=== PATIENT | male | born 1970 | race Caucasian/White ===

== ENCOUNTER 2019-12-10 13:59 | Inpatient (IN) ==
[2019-12-10] MEDS ORDERED: dilTIAZem HCl 5 MG/ML 5 ML VIAL IV ONE (14:19)
[2019-12-10] MEDS ORDERED: dilTIAZem HCl 5 MG/ML 5 ML VIAL IV STA (14:21)
[2019-12-10] MEDS ORDERED: STAT IV Infusion **Titration per Protocol STA (14:27)
[2019-12-10] MEDS ORDERED: SODIUM CHLORIDE 0.9% 1000ML 1,000 ML IV SCH (14:30)
[2019-12-10] MEDS: dilTIAZem HCL 125 MG in DEXTROSE 5% 100 ML IV SCH (14:41)
[2019-12-10 14:42] LABS: Basophils # (auto) 0.02 K/uL (0-0.2); Basophils % (auto) 0.3 %; Eosinophils # (auto) 0.13 K/uL (0-0.5); Hematocrit (blood only) 48.6 % (42-52); Hemoglobin 17.7 g/dL (14.0-18.0); Immature Granulocytes # (auto) 0.01 K/uL (0.00-0.02); Immature Granulocytes % (auto) 0.2 %; Lymphocytes # (auto) 1.35 K/uL (1.2-3.4); Lymphocytes % (auto) 20.6 %; Mean Corpuscular Hemoglobin 32.6 pg (25-34); Mean Corpuscular Hgb Conc 36.4 g/dL (32-36); Mean Corpuscular Volume 89.5 fL (80-100); Mean Platelet Volume 10.1 fL (7.4-10.4); Monocytes % (auto) 7.6 %; Neutrophils # (auto) 4.55 K/uL (1.4-6.5); Neutrophils % (auto) 69.3 %; Platelet Count 206 K/uL (130-400); RDW Standard Deviation 42.9 fL (36.4-46.3); Red Blood Count 5.43 M/uL (4.7-6.1); White Blood Count 6.56 K/uL (4.8-10.8)
[2019-12-10 14:52] LABS: INR 1.1 (0.9-1.1); Partial Thromboplastin Time 28.6 Seconds (21.0-31.0); Prothrombin Time 11.3 Seconds (9.0-12.0)
[2019-12-10 15:03] LABS: Alanine Aminotransferase 61 U/L (12-78); Albumin Level 4.8 gm/dl (3.4-5.0); Aspartate Aminotransferase 39 U/L (15-37); Bilirubin Direct 0.2 mg/dl (0-0.2); Blood Urea Nitrogen 16 mg/dl (7-18); Calcium 9.8 mg/dl (8.5-10.1); Carbon Dioxide 27 mmol/L (21-32); Chloride 106 mmol/L (98-107); Creatinine Clr Calc Pharmacy 67.6 ml/min; Est GFR (African American) 65.8; Est GFR (Non-African American) 56.8; Glucose 131 mg/dl (70-99); Lipase 99 U/L (73-393); Magnesium 2.2 mg/dl (1.8-2.4); Potassium 3.9 mmol/L (3.5-5.1); Sodium 141 mmol/L (136-145)
[2019-12-10 15:09] LABS: Alkaline Phosphatase 81 U/L (45-117); Bilirubin,Total 0.9 mg/dl (0.2-1); Total Protein 8.3 gm/dl (6.4-8.2); Troponin I < 0.015 ng/ml (0-0.045)
--- NOTE | 2019-12-10 15:48 | XRay Report ---
XR abdomen 2V w PA chest HISTORY: 49 years-old Male vomitting acute vomiting COMPARISON: Chest radiograph 06/09/2019, CT abdomen and pelvis 11/24/2018. TECHNIQUE: PA view the chest with erect and supine views of the abdomen FINDINGS: Cardiomediastinal and hilar silhouettes are within normal limits. No pneumothorax, pleural effusion, airspace consolidation or overt pulmonary edema. Healed remote right mid clavicular fracture. Bones a ppear grossly intact. The renal shadows are partially obscured by bowel gas. Bilateral nephrolithiasis measures up to appr oximately 3 mm on the right and 4 mm on the left. No ureteral calculi identified. Pelvic basin calcif ications favor phleboliths. Mild fecal retention. Nonobstructive bowel gas pattern. There are a few m ildly dilated loops of small bowel within the central abdomen. No pneumatosis or pneumoperitoneum. No acute fracture. IMPRESSION: 1. No acute processes of the chest. 2. Nonobstructive bowel gas pattern. 3. Mildly dilated air-filled loops of small bowel within the central abdomen may reflect a mild enter itis or ileus. 4. Bilateral nephrolithiasis without ureteral calculi identified. ACT 112: Negative or not required by law. The above report was generated using voice recognition software. It may contain grammatical, syntax o r spelling errors. Electronically signed by: Bull Dobson M.D. 12/10/2019 3:47 PM
--- NOTE | 2019-12-10 15:55 | History & Physical Report ---
Date of Service December 10, 2019 Assessment & Plan (1) Atrial fibrillation: 49-year-old male with a past medical history hemochromatosis, hypertension, A. fib, is being admitted for rate control of A. fib with RVR. -Admit to PCU Received 1 L fluid bolus in ED Started on diltiazem drip-we will continue and wean off as able to or if he spontaneously converts Takes metoprolol 25 mg a.m. 12.5 mg p.m. at home for rate control. Increased to 25 mg of metoprolol tartrate twice daily. Continued aspirin daily for now although this is not effective at preventing stroke and atrial fibrillation PCU monitoring Cardiology consult for recurrent/paroxysmal? Atrial fibrillation without antic oagulation. [id number] score is 1 which puts him at low-moderate risk for stroke and should consider anticoagulation Patient says that he usually flips out of A. fib within 6 hours. He notes he probably started the A. fib episode at noon on 12/09. If the patient is still in A. fib at midnight on 12/09 consider starting either therapeutic Lovenox or heparin drip for anticoagulation going forward. Patient of Dr. Dumont Present on Admission?: Yes (2) Nausea & vomiting: Had multiple episodes of nausea and vomiting earlier on the day of admission-now resolved and feeling hungry Abdominal series x-ray shows possible mild enteritis or ileus, no obstruction No tenderness on examination He does not think he passed a kidney stone as he had no abdominal pain or flank pain Unclear what the etiology is -Start clear liquids diet and advance as tolerated (3) Kidney stones: Bilateral kidney stones noted on KUB. Patient has no pain at this time. He does not think that his kidney stones caused him to have nausea and vomiting today UA ordered along with urine strainer. Continue fluid management. Present on Admission?: Yes (4) Hemochromatosis: Patient follows with [facility] hematology outpatient. He receives periodic phlebotomy for control Hg 17.7, hematocrit 48.6 A.m. ferritin ordered (patient gets phlebotomy for ferritin greater than 80) (5) Hypertension: Appropriately controlled at this time Continued home metoprolol for rate control and blood pressure control Present on Admission?: Yes (6) Chronic kidney disease, stage 3, mod decreased GFR: CKD stage II-III Creatinine of 1.42 on admission is up slightly from previous Multiple other hospital creatinine measurements have been elevated with GFR less than 60. Appears to be chronic process possibly secondary to hemochromatosis or hypertension. -Renally dose medications when needed -Avoid nephrotoxins such as NSAIDs (7) Acute kidney insufficiency: Possibly secondary to dehydration with large volume emesis and location of kidney stones Received 1 L normal saline fluid bolus in the ER now placed on maintenance fluids. A.m. BMP to follow (8) DVT prophylaxis: DVT prophylaxis: 40 mg Lovenox daily, but consider starting therapeutic anticoagulation if atrial fibrillation persists into the morning FEN/GI: Maintenance normal saline/clear fluids advance diet as tolerated CODE STATUS full code Dispo: PCU History of Present Illness 49-year-old male with a past medical history of hemochromatosis, hypertension, nephrolithiasis, periodic A. fib who presents to the emergency department today with new onset emesis and a repeat episode of A. fib. He states that he woke up this morning feeling well except he had significant nasal congestion and some pressure in the sinuses with postnasal drip and by noon had become increasingly uneasy and nauseated. He states he did not have anything different for breakfast and had his normal lunch but because he was feeling so ill opted to go home around noon. He said by 1 PM he very suddenly became extremely nauseous and needed to vomit and then proceeded to do so. He states at that same time he noticed his pulse was erratic and very fast and noted that he was likely in A. fib. Patient notes that his prior episodes of A. fib have only ever been concurrent with episodes of emesis and nephrolithiasis. He denies any new or different meals consumed the previous day, though he notes that last night's dinner was chicken that was premade from [employer]. His denies any symptoms. He follows regularly with [facility] cardiology, nephrology, hematology. He takes metoprolol 25 mg in the morning and 12.5 mg in the evening to control his blood pressure and keep him out of A. fib. He states he is not on a an ticoagulant because he is normally not in A. fib. At this time he says he does not have any nausea or abdominal pain. He states he does not have "palpitations" but is very aware of his heart beating fast. He denies any chest pain, shortness of breath, dizziness, lightheadedness. He is being admitted for rate control of A. fib RVR. Chief Complaint: Rapid heartbeat Primary Care Provider: Joe Qureshi Allergies Allergy/AdvReac Type Severity Reaction Status Date / Time No Known Allergies Allergy Verified 12/10/19 15:00 Home Medications Home Medications Medication Instructions Recorded Confirmed Type metoprolol tartrate 25 mg tablet 12.5 mg PO HS tab 11/03/18 12/10/19 History metoprolol tartrate 25 mg tablet 25 mg PO QAM #180 tab 11/03/18 12/10/19 History aspirin 81 mg PO HS 11/24/18 12/10/19 History cholecalciferol (vitamin D3) 1,000 unit PO DAILY 06/09/19 12/10/19 History [Vitamin D3] fluticasone propionate [Flonase 2 spray INTRANASAL BID 06/09/19 12/10/19 History Allergy Relief] multivitamin 1 tab PO DAILY 06/09/19 12/10/19 History Past Med/Surg History Medical History (Updated 12/10/19 @ 21:12 by Zoya Maciel MD) Atrial fibrillation Chronic kidney disease, stage 3, mod decreased GFR Hemochromatosis Hypertension Kidney stones Mild hyperparathyroidism Vitamin D deficiency Surgical History (Updated 12/10/19 @ 17:11 by Lora Tapia MD) H/O lithotripsy Family History (Updated 12/10/19 @ 17:11 by Lora Tapia MD) Mother Atrial fibrillation Social History Smoking Status: Never smoker Hx Alcohol Use: No Hx Substance Use: No Preferred Language: Vietnamese Communication Ability: Effective 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 Review of Systems Constitutional: no fever, no chills and no body aches Respiratory: no cough and no dyspnea Cardiovascular: no chest pain, no dyspnea, no palpitations, no lighthead edness, no syncope and no edema Gastrointestinal: + vomiting; no abdominal pain, no nausea, no cramping, no constipation and no diarrhea/loose stools Genitourinary: no dysuria and no flank pain Physical Exam Physical Exam: Constitutional: well developed, well appearing male in no apparent distress, sitting comfortably in bed. Eyes: EOMI, pupils equal and reactive bilaterally, no scleral icterus Cardiac: tachycardic in AFIB, no murmurs, gallops or rubs. Normal S1, S2 Pulm: CTA BL, no wheezes, rhonchi, crackles or rubs, moving air well throughout both lungs Abd: soft, nontender, nondistended, normal bowel sounds, no rebound or guarding Extremities: 2+ peripheral pulses, no edema Neuro: no focal deficits, moving all 4 limbs, A&Ox3 Results & Data Results & Data ([facility]) Vital Signs (Past 12 Hours) Vital Signs Temp Pulse Resp BP Pulse Ox 12/10/19 14:30 111 H 13 113/74 100 12/10/19 14:26 131 H 15 132/87 99 12/10/19 14:23 141 H 20 100 12/10/19 14:21 140 H 16 138/86 100 12/10/19 14:01 36.7 C 99 H 20 178/141 H 100 Laboratory Results WBC 6.56 K/uL (4.8-10.8) 12/10/19 14:22 RBC 5.43 M/uL (4.7-6.1) 12/10/19 14:22 Hgb 17.7 g/dL (14.0-18.0) 12/10/19 14:22 Hct 48.6 % (42-52) 12/10/19 14:22 MCV 89.5 fL (80-100) 12/10/19 14:22 MCH 32.6 pg (25-34) 12/10/19 14:22 MCHC 36.4 g/dL (32-36) H 12/10/19 14:22 RDW Std Deviation 42.9 fL (36.4-46.3) 12/10/19 14:22 RDW Coeff of Ambrocio 13.0 % (11.5-14.5) 12/10/19 14:22 Plt Count 206 K/uL (130-400) 12/10/19 14:22 MPV 10.1 fL (7.4-10.4) 12/10/19 14:22 Immature Gran % (Auto) 0.2 % 12/10/19 14:22 Neut % (Auto) 69.3 % 12/10/19 14:22 Lymph % (Auto) 20.6 % 12/10/19 14:22 [place] % (Auto) 7.6 % 12/10/19 14:22 Eos % (Auto) 2.0 % 12/10/19 14:22 Baso % (Auto) 0.3 % 12/10/19 14:22 Neut # (Auto) 4.55 K/uL (1.4-6.5) 12/10/19 14:22 Lymph # (Auto) 1.35 K/uL (1.2-3.4) 12/10/19 14:22 [place] # (Auto) 0.50 K/uL (0.11-0.59) 12/10/19 14:22 Eos # (Auto) 0.13 K/uL (0-0.5) 12/10/19 14:22 Baso # (Auto) 0.02 K/uL (0-0.2) 12/10/19 14:22 Immature Gran # (Auto) 0.01 K/uL (0.00-0.02) 12/10/19 14:22 PT 11.3 Seconds (9.0-12.0) 12/10/19 14:22 INR 1.1 (0.9-1.1) 12/10/19 14:22 APTT 28.6 Seconds (21.0-31.0) 12/10/19 14:22 PTT Ratio 1.0 12/10/19 14:22 Sodium 141 mmol/L (136-145) 12/10/19 14:22 Potassium 3.9 mmol/L (3.5-5.1) 12/10/19 14:22 Chloride 106 mmol/L (98-107) 12/10/19 14:22 Carbon Dioxide 27 mmol/L (21-32) 12/10/19 14:22 Anion Gap 8.0 (3-11) 12/10/19 14:22 BUN 16 mg/dl (7-18) 12/10/19 14:22 Creatinine 1.42 mg/dl (0.6-1.4) H 12/10/19 14:22 Est Cr Clr Drug Dosing 67.6 ml/min 12/10/19 14:22 Est GFR ( Amer) 65.8 12/10/19 14:22 Est GFR (Non-Af Amer) 56.8 12/10/19 14:22 BUN/Creatinine Ratio 11.0 (10-20) 12/10/19 14:22 Glucose 131 mg/dl (70-99) H 12/10/19 14:22 Calcium 9.8 mg/dl (8.5-10.1) 12/10/19 14:22 Magnesium 2.2 mg/dl (1.8-2.4) 12/10/19 14:22 Total Bilirubin 0.9 mg/dl (0.2-1) 12/10/19 14:22 Direct Bilirubin 0.2 mg/dl (0-0.2) 12/10/19 14:22 AST 39 U/L (15-37) H 12/10/19 14:22 ALT 61 U/L (12-78) 12/10/19 14:22 Alkaline Phosphatase 81 U/L (45-117) 12/10/19 14:22 Troponin I < 0.015 ng/ml (0-0.045) 12/10/19 14:22 Total Protein 8.3 gm/dl (6.4-8.2) H 12/10/19 14:22 Albumin 4.8 gm/dl (3.4-5.0) 12/10/19 14:22 Lipase 99 U/L (73-393) 12/10/19 14:22 EKG: Atrial fibrillation with RVR KUB: moderate stool, BL nephrolithiasis noted by radiologist arrows, no free air, nonobstructive bowel gas pattern, mildly dilated air-filled loops of small bowel in the central abdomen may reflect mild enteritis or ileus CXR: mild edema/vascular congestion obscuring right heart border, no cardiomegaly, diaphragmatic borders easily identifiable, no focal areas of consolidation in lungs, Supervising Physician Co-Signing Physician Notes I personally examined the patient and verified all gutierrez points of history and exam, discussed case, and agree with decision making with Dr. Tapia with the following additions/exceptions: This patient is a 49-year-old male with a history of PAF not on anticoagulation, HTN, hemochromatosis, and nephrolithiasis, who presents with multiple episodes of nausea and vomiting today followed by noticing rapid heart rate and found to be in rapid atrial fibrillation. He also reports significant nasal congestion and frontal headache with postnasal drip this morning. He does have a history of allergies and was recently tested for allergies including molds 1 month ago. 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 He does think that he had COVID back in May 2019 when he had significant shortness of breath and chest pains and loss of hearing afterwards for several week period. He denies any chest pain or shortness of breath today, his nausea is now improving. He remains in rapid atrial fibrillation when I saw him. He denies abdominal pain or flank pain. No blood in the urine. He had a normal bowel movement this morning. History and ROS reviewed as above Vitals reviewed Gen: AAOx3, NAD HEENT: Anicteric sclerae, EOMI, oropharynx clear, mucous membranes moist, TMs normal bilaterally, EACs normal bilaterally without impaction, no rhinorrhea, PERRL CV: Irregularly irregular, mildly tachycardic no mgr nl S1S2 Pulm: CTAB no wcr Abd: +BS soft NT ND no masses or hernias Ext: No edema, 2+ DP pulses Skin: No rashes, warm/dry Neuro: Full strength throughout Laboratory values reviewed, COVID-19 is negative ECG reviewed with rapid atrial fibrillation Chest x-ray and abdomen x-ray reviewed 49-year-old male with history as above, here with nausea/vomiting and rapid atrial fibrillation -Admit to PCU for telemetry monitoring -Continue rate control and hoping he will spontaneously convert to sinus rhythm as he usually does -As noted above, his risk for stroke is low to moderate and anticoagulation should be considered. Would opt to give therapeutic Lovenox dosing if atrial fibrillation persists through the night tonight -Increasing metoprolol tartrate to 25 mg p.o. twice daily for rate control Consult cardiology For nausea vomiting-unclear etiology but is now resolved, COVID-19 is negative. He typically gets rapid atrial fibrillation with nausea and vomiting, but could the rapid atrial fibrillation because the nausea and vomiting? He also reports that he usually gets nausea and vomiting with kidney stones but does not feel like he passed a kidney stone. Check UA and strain urine for stone. There are stones in the kidneys on abdominal x-ray. -Continue IV fluids Check electrolytes in the morning and keep potassium greater than 4 magnesium greater than 2 Give 10 mEq potassium chloride x1 now Resident Activity Tracking Resident Involvement: Resident Care Provided Care Provided: Adult Hospital Medicine (1) Atrial fibrillation Atrial fibrillation type: unspecified Qualified Code(s): I48.91 - Unspecified atrial fibrillation
--- NOTE | 2019-12-10 16:50 | Emergency Department Note ---
History of Present Illness General Chief Complaint: Cardiac Assessment Stated Complaint: AFIB, VOMITING Time Seen by Provider: 12/10/19 14:09 History of Present Illness Provider Complaint: + rapid heart beat, + irregular heart beat and + atrial fibrillation Onset (ago): 1 day(s) Current Pain Intensity: 0 Arrhythmia history: + atrial fibrillation Associated symptoms: + vomiting HPI narrative: 49-year-old male with history of A. fib presents emergency department for palpitations. Patient states "I think I am in A. fib". Patient states he goes into atrial fibrillation sometimes when he was vomits. Patient states he vomited today after he thought he ate something that did not sit well and stomach. He states he had a sinus headache which resolved after he vomited also. He currently denies any chest pain difficulty breathing or headache. Home Medications Home Medications Medication Instructions Recorded Confirmed Type metoprolol tartrate 25 mg tablet 12.5 mg PO HS tab 11/03/18 12/10/19 History metoprolol tartrate 25 mg tablet 25 mg PO QAM #180 tab 11/03/18 12/10/19 History aspirin 81 mg PO HS 11/24/18 12/10/19 History cholecalciferol (vitamin D3) 1,000 unit PO DAILY 06/09/19 12/10/19 History [Vitamin D3] fluticasone propionate [Flonase 2 spray INTRANASAL BID 06/09/19 12/10/19 History Allergy Relief] multivitamin 1 tab PO DAILY 06/09/19 12/10/19 History Allergies Allergy/AdvReac Type Severity Reaction Status Date / Time No Known Allergies Allergy Verified 12/10/19 15:00 Past Med/Surg History Medical History (Updated 12/10/19 @ 16:59 by Sandor Gonzalez) Atrial fibrillation Hemochromatosis Hypertension Kidney stones Surgical History No pertinent past surgical history Social History Smoking Status: Never smoker Preferred Language: Estonian Feels Safe at Home: Yes Review of Systems A total of 10 systems reviewed and were otherwise negative Physical Exam Vital Signs: Vital Signs - 24 hr 12/10/19 14:01 12/10/19 14:21 12/10/19 14:23 Temperature 36.7 C Temperature Source Oral Pulse Rate 99 H 140 H 141 H Pulse Rate from Sp O2 Sensor 110 H Pulse Rhythm Regular Irregular Pulse Strength Normal Respiratory Rate 20 16 20 Respiratory Effort / Characteristics Non-Labored Sponta neous Respiratory Depth Normal Respiratory Patter n Regular Blood Pressure 178/141 H 138/86 Blood Pressure Angie n 153 112 Blood Pressure Pos ition Sitting Pulse Oximetry 100 100 100 Oxygen Delivery Me thod Room Air Room Air Sepsis Recent Feve r Within 48 Hours No Sepsis New/Unexpla ined Change in Men milagros Status No Sepsis Action Take n by Nursing No Action Required 12/10/19 14:26 12/10/19 14:30 12/10/19 14:35 Temperature Temperature Source Pulse Rate 131 H 111 H 117 H Pulse Rate from Sp O2 Sensor 128 H 112 H 101 H Pulse Rhythm Pulse Strength Respiratory Rate 15 13 7 L Respiratory Effort / Characteristics Respiratory Depth Respiratory Patter n Blood Pressure 132/87 113/74 126/81 Blood Pressure Angie n 104 77 90 Blood Pressure Pos ition Pulse Oximetry 99 100 100 Oxygen Delivery Me thod Sepsis Recent Feve r Within 48 Hours Sepsis New/Unexpla ined Change in Men milagros Status Sepsis Action Take n by Nursing 12/10/19 14:40 12/10/19 14:45 12/10/19 14:50 Temperature Temperature Source Pulse Rate 105 H 92 H 96 H Pulse Rate from Sp O2 Sensor 97 H 105 H 110 H Pulse Rhythm Pulse Strength Respiratory Rate 12 10 L 11 L Respiratory Effort / Characteristics Respiratory Depth Respiratory Patter n Blood Pressure 122/78 132/71 119/78 Blood Pressure Angie n 94 83 84 Blood Pressure Pos ition Pulse Oximetry 100 100 99 Oxygen Delivery Me thod Sepsis Recent Feve r Within 48 Hours Sepsis New/Unexpla ined Change in Men milgaros Status Sepsis Action Take n by Nursing 12/10/19 14:55 12/10/19 15:00 12/10/19 15:25 Temperature Temperature Source Pulse Rate 106 H 95 H 107 H Pulse Rate from Sp O2 Sensor 108 H 114 H 101 H Pulse Rhythm Pulse Strength Respiratory Rate 14 6 L 6 L Respiratory Effort / Characteristics Respiratory Depth Respiratory Patter n Blood Pressure 107/78 135/64 105/74 Blood Pressure Angie n 82 81 81 Blood Pressure Pos ition Pulse Oximetry 100 96 97 Oxygen Delivery Me thod Sepsis Recent Feve r Within 48 Hours Sepsis New/Unexpla ined Change in Men milagros Status Sepsis Action Take n by Nursing 12/10/19 16:28 12/10/19 16:30 12/10/19 16:35 Temperature Temperature Source Pulse Rate 143 H 113 H 114 H Pulse Rate from Sp O2 Sensor 123 H 110 H 104 H Pulse Rhythm Pulse Strength Respiratory Rate 14 7 L 5 L Respiratory Effort / Characteristics Respiratory Depth Respiratory Patter n Blood Pressure 121/96 122/85 126/79 Blood Pressure Angie n 100 93 102 Blood Pressure Pos ition Pulse Oximetry 97 97 96 Oxygen Delivery Me thod Sepsis Recent Feve r Within 48 Hours Sepsis New/Unexpla ined Change in Men mliagros Status Sepsis Action Take n by Nursing Physical Exam: Physical Exam GENERAL: He is oriented to person, place, and time. He appears well-developed and well-nourished. He does not appear distressed. HENT: Exam performed. - Head: Normocephalic and atraumatic. - Right Ear: External ear normal. No mastoid tenderness. - Left Ear: External ear normal. No mastoid tenderness. - Mouth/Throat: The oropharynx is clear and moist. No trismus in the jaw. No dental abscesses or uvula swelling. No oropharyngeal exudate or tonsillar abscesses. EYES: Conjunctivae and EOM are normal. Pupils are equal, round, and reactive to light. Right eye exhibits no discharge. Left eye exhibits no discharge. No sc leral icterus. NECK: Normal range of motion. Neck supple. No JVD present. No spinous process tenderness present. No carotid bruit present. No rigidity. No tracheal deviation and normal range of motion present. No Brudzinski's sign and no Kernig's sign noted. CV: Tachycardic rate, irregular rhythm, normal heart sounds and intact distal pulses. There is no peripheral edema. Palpable radial pulses bue. PULM/CHEST: Effort normal and breath sounds normal. No respiratory distress. No stridor. He has no wheezes. He has no rales. - Chest Wall: He exhibits no tenderness. ABD: The abdomen is soft. Bowel sounds are normal. He has no distension. No mass is present. There is no tenderness. There is no rebound, no guarding, no Matias's sign and no tenderness at McBurney's point. Rovsig negative. MUSC/SKEL: Normal range of motion. There is no peripheral edema, tenderness or deformity. LYMPH: No cervical adenopathy. NEURO: He is alert and oriented to person, place, and time. He has normal streng th. No cranial nerve deficit or sensory deficit. Coordination and gait normal. GCS eye subscore is 4. GCS verbal subscore is 5. GCS motor subscore is 6. Cerebellar tests wnl. SKIN: Skin is warm and dry. He is not diaphoretic. PSYCH: He has a normal mood and affect. Behavior is normal. Judgment and thought content normal. Course Course 1409: The patient was evaluated in room C10. A complete history and physical exam was performed. 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 Large-bore IV access was immediately abscess and the patient was given Cardizem 20 mg IV push. Cardizem improved the patient's heart rate patient remained in atrial fibrillation. Patient was started on Cardizem drip. Cardiac monitoring: An order was placed for continuous cardiac monitoring. The monitor shows a rate of 150 with atrial fibrillation rhythm 1547: Vital signs stable patient's heart rate is stable on Cardizem drip. Labs and imaging within normal limits. Patient will be admitted to the hospital service. Discussed with [facility] hospitalist Dr. Maciel Administered Medications Diltiazem HCl 125 mg/ Dextrose 125 mls @ 5 mls/hr IV .Q24H [facility]; Protocol Stop: 01/09/20 14:29 Last Admin: 12/10/19 14:41 Dose: 5 mg/hr, 5 mls/hr Documented by: [id number] Cosigned by: [id number] Discontinued Medications Diltiazem HCl (Diltiazem Hcl 5 Mg/Ml 5 Ml Vial) Confirm Administered Dose 25 mg IV .STK-MED ONE Stop: 12/10/19 14:20 Last Admin: 12/10/19 14:37 Dose: Not Given Documented by: [id number] Diltiazem HCl (Diltiazem Hcl 5 Mg/Ml 5 Ml Vial) 20 mg IV NOW STA Stop: 12/10/19 14:22 Last Admin: 12/10/19 14:30 Dose: 20 mg Documented by: [id number] Cosigned by: [id number] Sodium Chloride (Nss 1000ml) 1,000 mls @ 999 mls/hr IV .Q1H1M [facility] Stop: 12/10/19 15:30 Last Infusion: 09/25/20 15:32 Dose: 0 mls/hr Documented by: [id number] Admin: 12/10/19 14:30 Dose: 999 mls/hr Documented by: [id number] Medical Decision Making Laboratory Data Result diagrams: 12/10/19 14:22 12/10/19 14:22 Lab Results 12/10/19 12/10/19 12/10/19 Range/Units 14:22 14:22 14:22 WBC 6.56 (4.8-10.8) K/uL RBC 5.43 (4.7-6.1) M/uL Hgb 17.7 (14.0-18.0) g/dL Hct 48.6 (42-52) % MCV 89.5 (80-100) fL MCH 32.6 (25-34) pg MCHC 36.4 H (32-36) g/dL RDW Std Deviation 42.9 (36.4-46.3) fL RDW Coeff of Ambrocio 13.0 (11.5-14.5) % Plt Count 206 (130-400) K/uL MPV 10.1 (7.4-10.4) fL Immature Gran % (Auto) 0.2 % Neut % (Auto) 69.3 % Lymph % (Auto) 20.6 % Russell % (Auto) 7.6 % Eos % (Auto) 2.0 % Baso % (Auto) 0.3 % Neut # (Auto) 4.55 (1.4-6.5) K/uL Lymph # (Auto) 1.35 (1.2-3.4) K/uL Russell # (Auto) 0.50 (0.11-0.59) K/uL Eos # (Auto) 0.13 (0-0.5) K/uL Baso # (Auto) 0.02 (0-0.2) K/uL Immature Gran # (Auto) 0.01 (0.00-0.02) K/uL PT 11.3 (9.0-12.0) Seconds INR 1.1 (0.9-1.1) APTT 28.6 (21.0-31.0) Seconds PTT Ratio 1.0 Sodium 141 (136-145) mmol/L Potassium 3.9 (3.5-5.1) mmol/L Chloride 106 (98-107) mmol/L Carbon Dioxide 27 (21-32) mmol/L Anion Gap 8.0 (3-11) BUN 16 (7-18) mg/dl Creatinine 1.42 H (0.6-1.4) mg/dl Est Cr Clr Drug Dosing 67.6 ml/min Est GFR ( Amer) 65.8 Est GFR (Non-Af Amer) 56.8 BUN/Creatinine Ratio 11.0 (10-20) Glucose 131 H (70-99) mg/dl Calcium 9.8 (8.5-10.1) mg/dl Magnesium 2.2 (1.8-2.4) mg/dl Total Bilirubin 0.9 (0.2-1) mg/dl Direct Bilirubin 0.2 (0-0.2) mg/dl AST 39 H (15-37) U/L ALT 61 (12-78) U/L Alkaline Phosphatase 81 (45-117) U/L Troponin I < 0.015 (0-0.045) ng/ml Total Protein 8.3 H (6.4-8.2) gm/dl Albumin 4.8 (3.4-5.0) gm/dl Lipase 99 (73-393) U/L Imaging Data Radiologist's Impression: XR abdomen 2V w PA chest HISTORY: 49 years-old Male vomitting acute vomiting COMPARISON: Chest radiograph 06/09/2019, CT abdomen and pelvis 11/24/2018. TECHNIQUE: PA view the chest with erect and supine views of the abdomen FINDINGS: Cardiomediastinal and hilar silhouettes are within normal limits. No pneumothorax, pleural effusion, airspace consolidation or overt pulmonary edema. Healed remote right mid clavicular fracture. Bones appear grossly intact. The renal shadows are partially obscured by bowel gas. Bilateral nephrolithiasis measures up to approximately 3 mm on the right and 4 mm on the left. No ureteral calculi identified. Pelvic basin calcifications favor phleboliths. Mild fecal retention. Nonobstructive bowel gas pattern. There are a few mildly dilated loops of small bowel within the central abdomen. No pneumatosis or pneumoperitoneum. No acute fracture. IMPRESSION: 1. No acute processes of the chest. 2. Nonobstructive bowel gas pattern. 3. Mildly dilated air-filled loops of small bowel within the central abdomen may reflect a mild enteritis or ileus. 4. Bilateral nephrolithiasis without ureteral calculi identified. ACT 112: Negative or not required by law. The above report was generated using voice recognition software. It may contain grammatical, syntax or spelling errors. Electronically signed by: Bull Dobson M.D. 12/10/2019 3:47 PM Dictated: 12/10/19 1544 Transcribed: 12/10/19 154 ECG Data Additional Comments: EKG #1 at 1411: Atrial fibrillation with a rate of 135. QRS and QTc intervals within normal limits. No ST elevation or ST depression. EKG #2 at 1430: Atrial fibrillation with rate of 127. QRS and QTc intervals within normal limits. No ST elevation or ST depression. EKG #3 at 1431: Atrial fibrillation with a rate of 107. QRS and QTc intervals within normal limits. No ST elevation or ST depression. [facility] Narrative 1409: The patient was evaluated in room C10. A complete history and physical exam was performed. 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 Large-bore IV access was immediately abscess and the patient was given Cardizem 20 mg IV push. Cardizem improved the patient's heart rate patient remained in atrial fibrillation. Patient was started on Cardizem drip. Cardiac monitoring: An order was placed for continuous cardiac monitoring. The monitor shows a rate of 150 with atrial fibrillation rhythm 1547: Vital signs stable patient's heart rate is stable on Cardizem drip. Labs and imaging within normal limits. Patient will be admitted to the hospital service. Discussed with [facility] hospitalist Dr. Maciel Impression & Plan Atrial fibrillation Critical Care Time Critical Care Time: Yes Total Critical Care Time: 59 I have personally spent greater than 59 minutes of critical care time in the direct management of this patient. This includes bedside care, interpretation of diagnostic studies, and testing, discussion with consultants, patient, and family members, and other required patient management activities. This 59 minutes is in excess of all separately billable procedures. Discharge Plan Visit Data Chief Complaint: Cardiac Assessment Stated Complaint: AFIB, VOMITING ED Provider: Sandor Gonzalez Discharge Problem: Atrial fibrillation Patient Disposition: Admitted As Inpatient Forms Stand Alone Forms: [facility] Prescriptions Prescriptions: No Action metoprolol tartrate 25 mg tablet 25 mg PO QAM Qty: 180 RF: 0 metoprolol tartrate 25 mg tablet 12.5 mg PO HS RF: 0 aspirin 81 mg Tablet,Delayed Release (Dr/Ec) 81 mg PO HS RF: 0 multivitamin Tablet 1 tab PO DAILY RF: 0 fluticasone propionate [Flonase Allergy Relief] 50 mcg/actuation Anson,Suspension 2 spray INTRANASAL BID RF: 0 cholecalciferol (vitamin D3) [Vitamin D3] 25 mcg (1,000 unit) Capsule 1,000 unit PO DAILY RF: 0 Referrals Referrals: Joe Qureshi [Primary Care Provider] - Discharge Problem: Atrial fibrillation Qualifiers: Atrial fibrillation type: unspecified Qualified Code(s): I48.91 - Unspecified atrial fibrillation
[2019-12-10] MEDS ORDERED: ONDANSETRON INJ 2 MG/ML 2 ML VIAL IV PRN (20:31)
[2019-12-10] MEDS ORDERED: ACETAMINOPHEN 325 MG TAB PO PRN (20:31)
[2019-12-10] MEDS ORDERED: NITROGLYCERIN SL 0.4 MG/TAB TAB SL PRN (20:31)
[2019-12-10] MEDS ORDERED: POTASSIUM CHLORIDE 10 MEQ TABCR PO STA (20:31)
[2019-12-10] MEDS ORDERED: ASPIRIN 81 MG ECTAB PO SCH (21:00)
--- NOTE | 2019-12-10 21:21 | Billing Data ---
Date of Service December 10, 2019 Coding Level of Care Code 46655 Initial Inpt Care Lvl 3
[2019-12-10] MEDS: SODIUM CHLORIDE 0.9% 1000ML 1,000 ML IV SCH (22:22)
[2019-12-10] MEDS: ENOXAPARIN 100 MG/1ML SYR SQ SCH (22:26)
[2019-12-10] MEDS: METOPROLOL TARTRATE 25 MG TAB PO SCH (22:28)
[2019-12-10] MEDS: FLUTICASONE PROPIONATE NA SPR 16 GM BTL SCH (22:29)
[2019-12-10 23:18] LABS: Appearance Urine Clear (Clear); Bilirubin Urine Negative (Negative); Blood Urine Negative (Negative); Color Urine Yellow; Glucose Urine UA Negative (Negative); Ketones Urine Trace (Negative); Leukocyte Esterase Urine Negative (Negative); Nitrite Urine Negative (Negative); Protein Urine Negative (Negative); Specific Gravity Urine 1.011 (1.000-1.030); Urobilinogen Urine Negative (Negative); pH Urine 8.5 (4.5-7.5)
[2019-12-11 06:33] LABS: Basophils # (auto) 0.02 K/uL (0-0.2); Basophils % (auto) 0.3 %; Eosinophils # (auto) 0.24 K/uL (0-0.5); Eosinophils % (auto) 3.8 %; Hematocrit (blood only) 47.9 % (42-52); Hemoglobin 17.3 g/dL (14.0-18.0); Immature Granulocytes # (auto) 0.01 K/uL (0.00-0.02); Immature Granulocytes % (auto) 0.2 %; Lymphocytes # (auto) 1.56 K/uL (1.2-3.4); Lymphocytes % (auto) 24.8 %; Mean Corpuscular Hemoglobin 32.6 pg (25-34); Mean Corpuscular Hgb Conc 36.1 g/dL (32-36); Mean Corpuscular Volume 90.4 fL (80-100); Mean Platelet Volume 10.4 fL (7.4-10.4); Monocytes # (auto) 0.89 K/uL (0.11-0.59); Monocytes % (auto) 14.2 %; Neutrophils # (auto) 3.56 K/uL (1.4-6.5); Neutrophils % (auto) 56.7 %; Platelet Count 188 K/uL (130-400); RDW Coefficient of Variation 13.1 % (11.5-14.5); RDW Standard Deviation 43.2 fL (36.4-46.3); White Blood Count 6.28 K/uL (4.8-10.8)
[2019-12-11 07:07] LABS: BUN Creatinine Ratio 9.9 (10-20); Calcium 9.4 mg/dl (8.5-10.1); Creatinine Clr Calc Pharmacy 75.5 ml/min; Est GFR (African American) 75.3; Magnesium 2.3 mg/dl (1.8-2.4); Potassium 3.9 mmol/L (3.5-5.1)
[2019-12-11] MEDS: SODIUM CHLORIDE 0.9% 1000ML 1,000 ML IV SCH (07:54)
[2019-12-11] MEDS ORDERED: CHOLECALCIFEROL 1,000 UNITS 25 MCG TAB PO SCH (09:00)
[2019-12-11] MEDS ORDERED: ENOXAPARIN INJ 40 MG/0.4 ML SYR SQ SCH (09:00)
[2019-12-11] MEDS ORDERED: MULTIVITAMIN TAB PO SCH (09:00)
[2019-12-11] MEDS: METOPROLOL TARTRATE 25 MG TAB PO SCH (09:42)
[2019-12-11] MEDS: ENOXAPARIN 100 MG/1ML SYR SQ SCH (09:43)
[2019-12-11] MEDS: FLUTICASONE PROPIONATE NA SPR 16 GM BTL SCH (09:43)
--- NOTE | 2019-12-11 10:44 | Cardiology Consultation ---
Date of Consultation December 11, 2019 Assessment & Plan (1) Atrial fibrillation: He presents with recurrent atrial fibrillation, generally his episodes are short-lived, this is longer than usual at about 24 hours now. The rate was fast on presentation and the episode started with vomiting which has been his typical presentation. He is very confident that it started at that time as he checks his pulse regularly throughout the day and he is confident he was not in it before that episode of vomiting. He is not on anticoagulant but is here. He does take aspirin as an outpatient. He is on low-dose intravenous diltiazem and his heart rate is adequate. Although his [id number] score is only 1 (hypertension) he may be at increased risk due to his history of hemochromatosis although that obviously is not in the scoring system. Still since he seems acutely aware of his rhythm in general it may be acceptable for long-term to not have him on an anticoagulant. I would not use aspirin. For now however I would have him on an anticoagulant, at least until he converts to sinus rhythm which I suspect he will do on his own. With adequate rate control I think he could go home in atrial fibrillation. I would recommend discontinuing aspirin, starting Eliquis 5 mg twice a day, inc reasing his metoprolol tartrate to 50 mg 3 times a day at least temporarily while he is in atrial fibrillation and letting him go home. If he does not convert on his own cardioversion could be arranged through Dr. Moore's office next week. (2) Hemochromatosis: He has a history of hemochromatosis, but does have cardiac manifestations and perhaps could relate to his atrial fibrillation although that is by no means clear. I do not think there is any specific precautions to be taken however. (3) Hypertension: He has a history of hypertension but his blood pressure has been good here as well as on prior vital signs in the record. His current dose of metoprolol appears adequate to control his blood pressure. History of Present Illness Reason for Consultation: Atrial fibrillation with rapid ventricular response Attending Physician: Natalie Parmar DO History of Present Illness This is a 49-year-old male who has a history of hemochromatosis and hypertension as well as atrial fibrillation for which he follows with Dr. Dumont. He is on aspirin rather than an anticoagulant ([id number] score is 1 for hypertension). He presented after having a GI illness yesterday, associated with nausea and vomiting which will from time to time trigger his atrial fibrillation. He checks his pulse regularly because he also has PACs and does that several times a day, he checked it immediately after having the vomiting when he felt some palpitations and noted that it was irregular and came to the emergency room. He was admitted, given Lovenox as an anticoagulant and diltiazem intravenously for rate control. As an outpatient he is maintained on metoprolol tartrate 25 mg in the morning and 12-1/2 mg at bedtime. He also takes aspirin but not an anticoagulant. He is very confident that the atrial fibrillation with the vomiting started at that time and that has been his history. He feels well now, he has had no further GI complaints and although he is aware of the irregularity he is not bothered by it now with rate control. Allergies Allergy/AdvReac Type Severity Reaction Status Date / Time No Known Allergies Allergy Verified 12/10/19 15:00 Home Medications Home Medications Medication Instructions Recorded Confirmed Type metoprolol tartrate 25 mg tablet 12.5 mg PO HS tab 11/03/18 12/10/19 History metoprolol tartrate 25 mg tablet 25 mg PO QAM #180 tab 11/03/18 12/10/19 History aspirin 81 mg PO HS 11/24/18 12/10/19 History cholecalciferol (vitamin D3) 1,000 unit PO DAILY 06/09/19 12/10/19 History [Vitamin D3] fluticasone propionate [Flonase 2 spray INTRANASAL BID 06/09/19 12/10/19 History Allergy Relief] multivitamin 1 tab PO DAILY 06/09/19 12/10/19 History Patient History Medical History Atrial fibrillation Chronic kidney disease, stage 3, mod decreased GFR Hemochromatosis Hypertension Kidney stones Mild hyperparathyroidism Vitamin D deficiency Surgical History H/O lithotripsy Family History Mother Atrial fibrillation Social History Smoking Status: Never smoker Hx Alcohol Use: No Hx Substance Use: No Preferred Language: British Communication Ability: Effective 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 Review of Systems Review of Systems: All systems reviewed & are unremarkable except as noted in HPI & below Physical Exam Physical Exam: Constitutional: Alert, cooperative and in no distress. HEENT: Unremarkable Neck: No jugular venous distention, carotid pulses are irregular but otherwise normal and equal bilaterally without bruits. Pulmonary: Clear to auscultation bilaterally. Cardiac: Irregular rhythm with no murmur, gallop or rub. Abdomen: Soft, nontender with normal bowel sounds. Extremities: No edema. Distal pulses intact. Neurologic: No focal findings. Gait is steady. Skin: No rash, ecchymoses or petechiae. Results & Data ([facility]) Vital Signs (Past 12 Hours) Vital Signs Temp Pulse Resp BP BP Pulse Ox 12/11/19 09:39 94 H 113/75 12/11/19 08:15 37.3 C 93 H 18 127/85 96 12/11/19 03:59 36.9 C 80 16 117/79 96 12/10/19 23:54 36.7 C 85 18 112/75 69 L Laboratory Results Cardiac Enzymes 12/10/19 Range/Units 14:22 AST 39 H (15-37) U/L Troponin I < 0.015 (0-0.045) ng/ml Coagulation 12/10/19 Range/Units 14:22 PT 11.3 (9.0-12.0) Seconds APTT 28.6 (21.0-31.0) Seconds CBC 12/10/19 12/11/19 Range/Units 14:22 06:00 WBC 6.56 6.28 (4.8-10.8) K/uL RBC 5.43 5.30 (4.7-6.1) M/uL Hgb 17.7 17.3 (14.0-18.0) g/dL Hct 48.6 47.9 (42-52) % Plt Count 206 188 (130-400) K/uL Neut # (Auto) 4.55 3.56 (1.4-6.5) K/uL Lymph # (Auto) 1.35 1.56 (1.2-3.4) K/uL [place] # (Auto) 0.50 0.89 H (0.11-0.59) K/uL Eos # (Auto) 0.13 0.24 (0-0.5) K/uL Baso # (Auto) 0.02 0.02 (0-0.2) K/uL Comprehensive Metabolic Panel 12/10/19 12/11/19 Range/Units 14:22 06:00 Sodium 141 142 (136-145) mmol/L Potassium 3.9 3.9 (3.5-5.1) mmol/L Chloride 106 109 H (98-107) mmol/L Carbon Dioxide 27 27 (21-32) mmol/L BUN 16 13 (7-18) mg/dl Creatinine 1.42 H 1.27 (0.6-1.4) mg/dl Glucose 131 H 94 (70-99) mg/dl Calcium 9.8 9.4 (8.5-10.1) mg/dl Direct Bilirubin 0.2 (0-0.2) mg/dl AST 39 H (15-37) U/L ALT 61 (12-78) U/L Alkaline Phosphatase 81 (45-117) U/L Total Protein 8.3 H (6.4-8.2) gm/dl Albumin 4.8 (3.4-5.0) gm/dl Intake and Output 12/10/19 12/11/19 12/11/19 22:59 06:59 14:59 Intake Total 1000 / 1000 1360 / 1360 Output Total 900 / 900 850 / 850 Balance 1000 / 100 -900 / 100 510 / 510 Intake: IV 1000 / 1000 1000 / 1000 Nss 1000ML 1,000 ml @ 100 mls/ 1000 / 1000 1000 / 1000 hr IV .Q10H [facility] Rx#:[id number] Oral 360 / 360 Output: Urine 900 / 900 400 / 400 Other 450 / 450 Other: Weight 87.7 kg 87.7 kg Diagnostic Findings Telemetry: Atrial fibrillation with good heart rate control PG Care Time/CCT Total # of Minutes Spent Total Time Spent with Patient: Total time spent is greater than 50% in coordination of care (as documented) at patient's floor/unit and/or counseling patient: Coding Level of Care Code 08580 Inpt Consult Level 4 Diagnoses Atrial fibrillation I48.91 Atrial fibrillation type: unspecified Hemochromatosis E83.119 Hypertension I10 (1) Atrial fibrillation Atrial fibrillation type: unspecified Qualified Code(s): I48.91 - Unspecified atrial fibrillation
[2019-12-11] MEDS: dilTIAZem HCL 125 MG in DEXTROSE 5% 100 ML IV SCH (10:53)
[2019-12-11 11:17] LABS: CoV2 Total Antibody Positive (Negative)
--- NOTE | 2019-12-11 11:33 | Discharge Summary ---
Date of Service December 11, 2019 Principal Diagnosis Pt is feeling much better. He still feels that he is in afib, but it is better. He states that the only time he goes into afib is with "intense" vomiting, which happened "out of the blue" yesterday. He has had no further n/v since admission. He tolerated PO without issue. Pt states he does not have hx of HTN, but that metoprolol was started only for the afib. Pt states he follows with hematology regularly for his hemochromatosis. He had plasmaphoresis in early October and was to have his ferritin and H/H checked soon to determine if he needed repeat tx. He states that the numbers noted during this workup are at a level in which he would likely have tx. Discharge Exam Constitutional WD/WN, vitals as above Eyes normal visual khalil by confrontation and + anicteric sclerae Neck normal visual inspection and trachea midline Respiratory normal respiratory effort, lungs clear to auscultation Cardiovascular Rate/Rhythm: regular rate; + abnormal rhythm Extremities: no edema Gastrointestinal (Abdomen) Inspection/Auscultation: abdomen not distended Percussion/Palpation: abdomen soft; abdomen nontender Musculoskeletal Head/Neck/Chest: normocephalic and head atraumatic Skin no rashes, warm and dry Neurologic awake; not confused Speech / Cognition: normal speech Psychiatric A+Ox3, euthymic affect Discharge Data Allergies Allergy/AdvReac Type Severity Reaction Status Date / Time No Known Allergies Allergy Verified 12/10/19 15:00 Consultations 12/10/19 15:47 ED Decision to Admit Stat 12/10/19 20:31 Consult Cardiology Routine Consult Case Management - Discharge Planning Routine Hospital Course (1) Atrial fibrillation: 49-year-old male with a past medical history hemochromatosis, hypertension, A. fib, is being admitted for rate control of A. fib with RVR. -Admitted to PCU Started on diltiazem drip in the ED Takes metoprolol 25 mg a.m. 12.5 mg p.m. at home for rate control. Increased to 25 mg of metoprolol tartrate twice daily. Continued aspirin daily for now although this is not effective at preventing stroke and atrial fibrillation Cardiology consult for recurrent/paroxysmal? Atrial fibrillation without anticoagulation. [id number] score calculated at 1 for presumed HTN which puts him at low-moderate risk for stroke and should consider anticoagulation, however pt states he was never on metoprolol until he was dx with afib and does not have HTN hx Patient says that he usually flips out of A. fib within 6 hours. He notes he probably started the A. fib episode at noon on 12/09. Patient of Dr. 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 Patient has no pain at this time. He does not think that his kidney stones caused him to have nausea and vomiting today UA ordered along with urine strainer. (4) Hemochromatosis: Patient follows with [facility] hematology outpatient. He receives periodic phlebotomy for control Hg 17.7, hematocrit 48.6 Ferritin at 113 (patient gets phlebotomy for ferritin greater than 80) Pt states he had orders for labs in the next week or so due to recent phlebotomy in early October. 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 Appears to be chronic process possibly secondary to hemochromatosis or hypertension. -Renally dose medications when needed -Avoid nephrotoxins such as NSAIDs (7) Acute kidney insufficiency: Possibly secondary to dehydration with large volume emesis and location of kidney stones Received 1 L normal saline fluid bolus in the ER now placed on maintenance fluids. A.m. BMP to follow (8) DVT prophylaxis: Total Time Total Time Spent Total Time Spent (In Minutes): >30 Total Time Includes: Examination of the Patient, Discharge Planning, Medication Reconciliation, Communication With Other Providers and Other Discharge Plan Discharge Items Patient Disposition: Home - Self-Care Reason For Visit: AFIB, EMESIS Discharge Diagnosis: afib Activity: Resume your previous activity Non-emergency contact: Primary Care Provider and Buyer Liaison Call non-emergency contact if: you have any medication questions and your symptoms worsen Follow-up/Referrals: Joe Qureshi [Primary Care Provider] - Mk Dumont DO [Physician] - Diet: Regular Addtl Attending Provider Instructions: You should be seen by Dr. Dumont early next week There has been an increase in your metoprolol dosing to help control your heart rate and rhythm. This may cause your heart rate or blood pressure to go too low. If you notice feelings of dizziness, lightheadedness, or fatigue/decreased endurance, you should check your heart rate and blood pressure. If your heart rate is less than 55 or if your blood pressure is less than 90 systolic (top number), you should go back to the metoprolol dosing you were taking prior or be seen in the ED or by Dr. Dumont Pending Studies at Discharge: Yes Studies:: COVID 19 antibody testing Stand-Alone Forms: My [employer], Smoking Cessation Medications and DC Order Prescriptions: New metoprolol tartrate 25 mg Tablet 50 mg PO TID Qty: 90 RF: 0 Eliquis 5 mg tablet 5 mg PO BID Qty: 60 RF: 0 Continued multivitamin Tablet 1 tab PO DAILY RF: 0 fluticasone propionate [Flonase Allergy Relief] 50 mcg/actuation [place],Suspension 2 spray INTRANASAL BID RF: 0 cholecalciferol (vitamin D3) [Vitamin D3] 25 mcg (1,000 unit) Capsule 1,000 unit PO DAILY RF: 0 Discontinued metoprolol tartrate 25 mg tablet 25 mg PO QAM Qty: 180 RF: 0 metoprolol tartrate 25 mg tablet 12.5 mg PO HS RF: 0 aspirin 81 mg Tablet,Delayed Release (Dr/Ec) 81 mg PO HS RF: 0 Discharge Orders: Discharge Order (Routine); Ordered 12/11/19 Ordered By: Natalie Parmar Admission Data Admit Date/Time: 12/10/19 16:47 Attending Provider: Natalie Parmar Admit Provider: Lora Tapia Primary Care Provider: Joe uQreshi Other Providers: Zoya Maciel ; Sohail Siddiqui Other Interventions: Discharge Summary Assessment (RN) Last Done: 12/11/19 12:47 Coding Level of Care Code D/C Day Management >30 mins Diagnoses Atrial fibrillation I48.91 Atrial fibrillation type: unspecified Nausea & vomiting R11.2 Kidney stones N20.0 Hemochromatosis E83.119 Hypertension I10 Chronic kidney disease, stage 3, mod decreased GFR N18.3 Acute kidney insufficiency N28.9 DVT prophylaxis Z29.9
--- NOTE | 2019-12-12 08:20 | Electrocardiogram Report ---
Test Reason : Blood Pressure : / mmHG Vent. Rate : 135 BPM Atrial Rate : 131 BPM P-R Int : 000 ms QRS Dur : 098 ms QT Int : 280 ms P-R-T Axes : 000 -13 -01 degrees QTc Int : 420 ms Atrial fibrillation with rapid ventricular response Cannot rule out Inferior infarct , age undetermined Abnormal ECG When compared with ECG of 09-JUN-2019 12:49, Atrial fibrillation has replaced Sinus rhythm Vent. rate has increased BY 73 BPM Non-specific change in ST segment in Inferior leads ST now depressed in Lateral leads Confirmed by Sohail Siddiqui ([id number]) on 12/12/2019 8:20:02 AM Referred By: Confirmed By:Sohail Siddiqui
--- NOTE | 2019-12-12 08:22 | Electrocardiogram Report ---
Test Reason : Blood Pressure : / mmHG Vent. Rate : 127 BPM Atrial Rate : 120 BPM P-R Int : 000 ms QRS Dur : 102 ms QT Int : 292 ms P-R-T Axes : 000 013 -23 degrees QTc Int : 424 ms Atrial fibrillation with rapid ventricular response Nonspecific ST abnormality Abnormal ECG When compared with ECG of 10-DEC-2019 14:11, (unconfirmed) No significant change was found Confirmed by Sohail Siddiqui ([id number]) on 12/12/2019 8:22:25 AM Referred By: REFERRED SELF Confirmed By:Sohail Siddiqui
--- NOTE | 2019-12-12 08:22 | Electrocardiogram Report ---
Test Reason : Blood Pressure : / mmHG Vent. Rate : 107 BPM Atrial Rate : 085 BPM P-R Int : 000 ms QRS Dur : 100 ms QT Int : 340 ms P-R-T Axes : 000 011 -03 degrees QTc Int : 453 ms Atrial fibrillation with rapid ventricular response Abnormal ECG When compared with ECG of 10-DEC-2019 14:30, (unconfirmed) No significant change was found Confirmed by Sohail Siddiqui ([id number]) on 12/12/2019 8:22:30 AM Referred By: REFERRED SELF Confirmed By:Sohail Siddiqui
[2019-12-23] MEDS ORDERED: INFLUENZA VIRUS QUAD VACCINE 0.5 ML SYR IM ONE (08:00)
[2019-12-23] MEDS ORDERED: INFLUENZA ADMINISTRATION CHARGE ONE (08:00)
== END 2019-12-11 13:38 | disposition home or self-care (01) | DRG 310 ==
LOC: ED 13:59 → 2S 16:47 → SUATTDRO 16:47 → 2S 19:41
DX: N18.3 Chronic kidney disease, stage 3 (moderate); I12.9 Hypertensive chronic kidney disease with stage 1 through stage 4 chronic kidney disease, or unspecified chronic kidney disease; N28.9 Disorder of kidney and ureter, unspecified; Z79.82 Long term (current) use of aspirin; E83.119 Hemochromatosis, unspecified; I48.91 Unspecified atrial fibrillation